=== PATIENT | female | born 1965 | race Caucasian/White ===

== ENCOUNTER → 2016-05-23 | Day surgery (SDC) | payer OTHER ==
[~2016-05-23] VITALS: Ht 172.7 cm; Wt 72.6 kg
[~2016-05-23] MED LIST: ALPRAZOLAM2 M2 PO; COUMADIN4 M1 PO; LOVENOX40 MG/0.1 SC
[2016-05-23 08:35] LABS: PT 11.3 SEC (9.4-12.5)
--- NOTE | 2016-05-23 12:03 | Operative Report ---
Operative/Inv Procedure Report Surgery Date: 05/23/16 Name of Procedure: Right shoulder arthroscopy, extensive debridement, subacromial decompression, subpectoral biceps tenodesis Pre-Operative Diagnosis: Right shoulder rotator cuff tendinitis with biceps tenosynovitis Post-Operative Diagnosis: Right shoulder SLAP tear, rotator cuff tendinitis, biceps tenosynovitis Estimated Blood Loss: scant Surgeon/Vp Security: JONY HUERTA,RED GRANT Anesthesia: general endotracheal tube, block Complications: None Condition: Stable to PACU Operative Indication: This is a 50-year-old female long-standing right shoulder pain that has failed conservative care. Risks and benefits of the procedure were discussed with the patient at length. Risks include but are not limited to nerve damage, muscle damage, infection, blood loss, blood clots, pulmonary embolus, and even . The patient agreed to the above risks and elected to proceed with surgery. Operative/Procedure Note Note: The patient was taken to the operating room and placed in the lateral decubitus position with the operative side up after anesthesia was induced. The upper extremity was prepped and draped in the normal sterile fashion. A timeout was performed prior to incision. The site marking was visualized prior to incision. IV antibiotics were given prior to incision. After the upper extremity was prepped and draped a spinal needle was used to insufflate the shoulder joint with saline. An 11 blade was used to incise the skin for the posterior portal placement. The cannula was then placed. The camera was inserted. An anterior portal was established just proximal and lateral to the coracoid with a spinal needle and an 11 blade. The diagnostic arthroscopy was then performed that showed the above findings. The wand was used to perform a biceps tenotomy. The shaver was then used to debride the superior labrum as well as the anterior labrum. A wand was used to further stabilize labrum. The shaver was then used to debride the undersurface of the infraspinatus insertion. Next the subacromial space was entered through the posterior portal. A lateral portal was established with a spinal needle and an 11 blade. A blunt probe was inserted through the lateral portal. Next the shaver was inserted and a subacromial bursectomy was performed. Any bleeding vessels were identified and cauterized. The shaver was used to debride any bursal tissue on the undersurface of the acromion and surrounding the humeral head. The coracoacromial ligament was taken down with a wand. Care was taken to protect the rotator cuff tissue and only take bursal tissue. A wand was then used to further take down the soft tissue on the undersurface of the acromion. A bur was then inserted and the acromioplasty was then begun starting at the anterolateral edge of the acromion. This was extended down to the level of the acromioclavicular joint. This was then tapered further posteriorly. A 1/8 inch Hemovac drain was placed through the posterior portal. All instruments were removed and the shoulder was copiously irrigated. The portal sites were closed with 3-0 nylon suture in a simple interrupted fashion. An incision was then made in the axillary fold. Blunt dissection was performed and the pectoralis major tendon was identified. A Hohmann retractor was inserted deep to this to expose the bicipital groove. The biceps tendon was then delivered from the wound and whipstitched starting at the musculotendinous junction. It extended proximally. The excess tendon was cut. The bicipital groove was then cleared off of any soft tissue. A guidewire was then drilled from an anterior to posterior direction in the groove. A 7 mm reamer was then used over the wire to drill the anterior cortex. A 7 x 10 mm Arthrex peek tenodesis screw was then inserted after the biceps tendon was delivered into the drill hole. The screw was then tightened down flush with the anterior humeral cortex. The sutures were then tied over the top. The excess suture was cut. The wound was copiously irrigated. The skin was closed with 2-0 vicryl suture in a simple interrupted fashion and a running subcuticular 4-0 Monocryl stitch. Dermabond was applied. A dry sterile dressing was placed. A sling was applied. The patient was transferred to PACU in stable condition. Findings: Degenerative SLAP tear. Mild tearing of the anterior labrum. Posterior labrum intact. Glenohumeral articular cartilage intact. Bicipital tenosynovitis. Subscapularis tendon insertion intact. Extensive subacromial bursitis. Subacromial hook present. Rotator cuff intact from the bursal side. Mild partial thickness tearing of the infraspinatus on the articular surface. Supraspinatus intact.
== END ==
LOC: STS 01:03
PROVIDERS: Orthopaedic Surgery
DX: M75.81 Other shoulder lesions, right shoulder (principal); M75.21 Bicipital tendinitis, right shoulder; M75.51 Bursitis of right shoulder; I10 Essential (primary) hypertension; I51.9 Heart disease, unspecified; Z79.01 Long term (current) use of anticoagulants
CPT/HCPCS: 36415; J0171; J0690; J2250; J2795